=== PATIENT | female | born 1975 | race Caucasian/White ===

== ENCOUNTER 2018-04-01 07:28 | Outpatient (CLI) | payer OTHER | END 2018-04-01 07:43 | disposition home or self-care (01) | LOC: LAB 07:28 | DX: N80.0 Endometriosis of uterus (principal); D68.8 Other specified coagulation defects; G47.33 Obstructive sleep apnea (adult) (pediatric); D50.8 Other iron deficiency anemias; D51.8 Other vitamin B12 deficiency anemias; I10 Essential (primary) hypertension; R97.0 Elevated carcinoembryonic antigen [CEA]; R97.8 Other abnormal tumor markers ==

== ENCOUNTER 2018-04-23 12:34 | Emergency (ER) | payer OTHER ==
[~2018-04-23] VITALS: Ht 157.5 cm; Wt 54.0 kg
[2018-04-23] MEDS ORDERED: NEURONTIN600 MG PO (13:17)
== END 2018-04-23 16:00 | disposition home or self-care (01) ==
LOC: ER 12:34
DX: R11.0 Nausea (principal)

== ENCOUNTER 2018-05-21 09:40 | Outpatient (CLI) | payer OTHER ==
[~2018-05-21 09:40] MED LIST: NEURONTIN600 MG PO
== END 2018-05-21 09:49 | disposition home or self-care (01) ==
LOC: LAB 09:40
DX: Z14.02 Symptomatic hemophilia A carrier (principal); D68.8 Other specified coagulation defects; N80.0 Endometriosis of uterus; G47.33 Obstructive sleep apnea (adult) (pediatric)

== ENCOUNTER 2018-07-11 06:54 | Outpatient (CLI) | payer OTHER | END 2018-07-11 07:07 | disposition home or self-care (01) | LOC: LAB 06:54 | DX: D68.0 Von Willebrand disease (principal); D68.8 Other specified coagulation defects; N80.0 Endometriosis of uterus; G47.33 Obstructive sleep apnea (adult) (pediatric); D50.8 Other iron deficiency anemias; D51.8 Other vitamin B12 deficiency anemias ==

== ENCOUNTER → 2018-10-17 07:24 | Outpatient (CLI) | payer OTHER | END | disposition home or self-care (01) | LOC: LAB 07:24 | DX: D68.0 Von Willebrand disease (principal); D68.8 Other specified coagulation defects; N80.0 Endometriosis of uterus; G47.33 Obstructive sleep apnea (adult) (pediatric); D50.8 Other iron deficiency anemias; D51.8 Other vitamin B12 deficiency anemias; I10 Essential (primary) hypertension ==

== ENCOUNTER 2018-12-16 07:11 | Outpatient (CLI) | payer OTHER | END 2018-12-16 16:51 | disposition home or self-care (01) | LOC: LAB 07:11 | DX: D50.8 Other iron deficiency anemias (principal); I10 Essential (primary) hypertension; D68.0 Von Willebrand disease; N80.0 Endometriosis of uterus; G47.33 Obstructive sleep apnea (adult) (pediatric); D50.0 Iron deficiency anemia secondary to blood loss (chronic); D51.8 Other vitamin B12 deficiency anemias ==

== ENCOUNTER → 2019-05-05 09:56 | Outpatient (CLI) | payer OTHER | END | disposition home or self-care (01) | LOC: LAB 09:56 | DX: J45.998 Other asthma (principal) ==